=== PATIENT | male | born 1995 | race African-American/Black ===

== ENCOUNTER 2017-04-15 01:54 | Emergency (ER) | payer SELFPAY ==
[~2017-04-15 01:54] MED LIST: FLEXERIL10 M1 PO; IBUPROFEN800 MG PO; NO MEDICATIONS
== END 2017-04-15 05:41 | disposition home or self-care (01) ==
LOC: CED 01:54
DX: S61.411A Laceration without foreign body of right hand, initial encounter (principal); S60.412A Abrasion of right middle finger, initial encounter; S60.416A Abrasion of right little finger, initial encounter; Z90.89 Acquired absence of other organs; W26.8XXA Contact with other sharp object(s), not elsewhere classified, initial encounter; Y92.512 Supermarket, store or market as the place of occurrence of the external cause
CPT/HCPCS: 12001; 99283